=== PATIENT | male | born 1975 | race Caucasian/White ===

== ENCOUNTER 2017-02-03 06:38 | Day surgery (SDC) | payer OTHER ==
[~2017-02-03] VITALS: Ht 185.4 cm; Wt 108.9 kg
[~2017-02-03 06:38] MED LIST: BUPIVACAINE-EPI 0.25%-1:200000 MPF 30 ML VIAL. ONE
[2017-02-03] MEDS ORDERED: LIDOCAINE 1% PF 2 ML VIAL. ID PRN (07:00)
[2017-02-03] MEDS ORDERED: fentaNYL PF VIAL 100 MCG/2 ML VIAL IV PRN (07:00)
[2017-02-03] MEDS ORDERED: IV RINGERS,LACTATED 1000ML 1,000 ML IV SCH (07:00)
[2017-02-03] MEDS ORDERED: ONDANSETRON PF 4 MG/2 ML VIAL. IV PRN (07:00)
[2017-02-03] MEDS ORDERED: PROCHLORPERAZINE 10 MG/2 ML VIAL. IV PRN (07:00)
[2017-02-03] MEDS ORDERED: LIDOCAINE 2% PF Vial for OR 5 ML VIAL. ONE (07:08)
[2017-02-03] MEDS ORDERED: fentaNYL PF VIAL 100 MCG/2 ML VIAL ONE (07:08)
[2017-02-03] MEDS ORDERED: PROPOFOL 20 ML IV ONE (07:08)
[2017-02-03] MEDS ORDERED: ROCURONIUM 100 MG/10 ML VIAL. ONE (07:09)
[2017-02-03] MEDS ORDERED: SUCCINYLCHOLINE 200 MG/10 ML VIAL. ONE (07:09)
[2017-02-03] MEDS ORDERED: SEVOFLURANE 61 TO 120 MINUTES. IH ONE (07:55)
[2017-02-03] MEDS ORDERED: DEXAMETHASONE SOD PHOS 20 MG/5 ML VIAL. ONE (07:55)
[2017-02-03] MEDS ORDERED: ONDANSETRON PF 4 MG/2 ML VIAL. ONE (07:55)
[2017-02-03] MEDS ORDERED: NEOSTIGMINE 10 MG/10 ML VIAL. ONE (07:55)
[2017-02-03] MEDS ORDERED: GLYCOPYRROLATE 1 MG/5 ML VIAL. ONE (07:56)
--- NOTE | 2017-02-03 08:50 | PDOC4 ---
Operative Note Operative Note Date: 02/03/2017 Preoperative diagnosis: Ventral hernia Postoperative diagnosis: Same Procedure: Robotic-assisted laparoscopic ventral hernia repair with mesh Surgeon: Santiago Specimen: None Patient: Patient is a 41-year-old male with a bulge at his umbilicus is becoming larger and more painful procedure of robotic-assisted laparoscopic ventral hernia repair with mesh was explained to the patient in detail was benefits were also discussed including bleeding infection injury to intra- abdominal contents possibly necessitating further or open operations. The patient seemed understanding gave both verbal and written consent had procedure performed. Patient was taken to the operating room placed in supine position general anesthesia was initiated once patient was asleep and intubated his abdomen was prepped and draped in the usual sterile fashion using ChloraPrep and area in the left upper quadrant was injected with quarter percent Marcaine with epinephrine and incision was made lead blade scalpel and a 5 mm Visiport was placed under direct visualization into the abdomen and a pneumoperitoneum was created. Point a 8/2 mm da Jinny port was placed in the left lower quadrant and one in the left mid abdomen under direct visualization the da Jinny robot was brought in and docked all ports. At this point the surgeon went to the robotic console using Endo Kulwinder scissors and a grasper the hernia sac was reduced and closed with a running 20V lock nonabsorbable suture. Ventral light echo mesh was then placed over the defect this was sewn in place with a running V lock suture. Once this complete the pneumoperitoneum was reduced all ports removed the da Jinny undocked and the incisions were closed with 4 septic or Monocryl Mastisol Steri-Strips and island dressings were applied. Patient was waken next made in the operating room taken to recovery in stable condition all sponge instrument and needle counts listed as correct. Estimated blood loss 10 mL LILLIANA LEWIS MD Feb 03, 2017 08:50
--- NOTE | 2017-02-03 08:51 | DISCH ---
DISCHARGE INSTRUCTIONS Condition on Discharge Condition on Discharge: Stable Activity After Discharge Activity Instructions for Disc: Avoid exertion Other activity instructions: No lifting >20lbs for 2 weeks Diet after Discharge Diet after Discharge: Regular Wound Incision Care Other wound/incision instructi: May shower in 24 hours Contacting the after DC Call your doctor for: If your condition worsens Follow-Up Follow up with: Dr Lewis in 2 weeks LILLIANA LEWIS MD Feb 03, 2017 08:51
[2017-02-03] MEDS: fentaNYL PF VIAL 100 MCG/2 ML VIAL IV PRN ×2 (09:05→09:14)
[2017-02-03] MEDS: MORPHINE SULFATE 2 MG/ML DISP.SYRIN. IV PRN ×2 (09:21→09:33)
[2017-02-03] MEDS ORDERED: OXYC-323 PO (09:38)
[2017-02-03] MEDS ORDERED: oxyCODONE/APAP 5/325 1 TAB TABLET PO PRN (09:45)
[2017-02-03] MEDS: HYDROmorphone 2 MG/ML VIAL IV PRN ×4 (09:45→10:21)
[2017-02-03 10:29] VITALS: BP 127/78
== END 2017-02-03 11:00 | disposition home or self-care (01) ==
LOC: SURG 06:38
PROVIDERS: ATTEND Surgery
DX: K43.9 Ventral hernia without obstruction or gangrene (principal); Z72.89 Other problems related to lifestyle
CPT/HCPCS: 49652; C1781; J0330; J0690; J0780; J1100; J1170; J2270; J2405; J2704; J2710; J3010; J3490; J2001